=== PATIENT | male | born 1970 | race Caucasian/White ===

== ENCOUNTER 2018-08-16 10:32 | Emergency (ER) | payer BC ==
[2018-08-16 10:32] VITALS: BMI 26.2
[2018-08-16 11:00] VITALS: TEMP 98
--- NOTE | 2018-08-16 11:19 | ED PDOC ---
Arrival/HPI <Uzair Martins - Last Filed: 08/16/18 11:50> - General Historian: Patient - History of Present Illness Narrative History of Present Illness (Text): 08/16/18 11:16 47 y/o male, pmh including renal stone, nkda, c/o acute onset of generalized abdominal pain about 1 hour ago. Pt. stated that the pain is every where, upper and lower, no urinary symptoms, no nausea/vomiting/diarrhea, no rash, no dizziness, no change in vision, no night sweat, no dizziness, no chest pain/shortness of breath, no other medical or psychological complaints. <Shiva Carver - Last Filed: 08/16/18 13:40> - General Chief Complaint: Abdominal Pain Time Seen by Provider: 08/16/18 10:33 Past Medical History - Provider Review Nursing Documentation Reviewed: Yes - Infectious Disease Hx of Infectious Diseases: None - Tetanus Immunization Tetanus Immunization: Unknown - Past Medical History Past Medical History: No Previous - Cardiac Hx Cardiac Disorders: No Other/Comment: kidney stones, hernia repair - Renal Hx Kidney Stones: Yes - Psychiatric Hx Depression: No Hx Emotional Abuse: No Hx Physical Abuse: No Hx Substance Use: No - Surgical History Other/Comment: vasectomy - Anesthesia Hx Anesthesia: Yes Hx Anesthesia Reactions: No Hx Malignant Hyperthermia: No - Suicidal Assessment Feels Threatened In Home Enviroment: No <Shiva Carver - Last Filed: 08/16/18 13:40> Family/Social History - Physician Review Nursing Documentation Reviewed: Yes Family/Social History: Unknown Family HX Smoking Status: Never Smoked Hx Alcohol Use: (Social alcohol) Hx Substance Use: No Hx Substance Use Treatment: No <Shiva Carver - Last Filed: 08/16/18 13:40> Allergies/Home Meds <Uzair Martins - Last Filed: 08/16/18 11:50> <Shiva Carver - Last Filed: 08/16/18 13:40> Allergies/Adverse Reactions: Allergies No Known Allergies Allergy (Verified 12/07/14 14:07) Home Medications: Home Meds Medication Instructions Recorded Confirmed Multivitamin and [id number] [Daily 1 tab PO DAILY 07/01/14 12/07/14 Multi/Max-Vitamins] Lubiprostone [Amitiza] 8 mcg PO DAILY 12/07/14 12/07/14 Review of Systems - Review of Systems Constitutional: absent: Fatigue, Fevers Eyes: absent: Vision Changes ENT: absent: Hearing Changes Respiratory: absent: SOB, Cough Cardiovascular: absent: Chest Pain Gastrointestinal: Abdominal Pain. absent: Diarrhea, Nausea, Vomiting Genitourinary Male: absent: Dysuria, Frequency, Hematuria Musculoskeletal: absent: Arthralgias, Back Pain Skin: absent: Rash, Pruritis Neurological: absent: Headache, Dizziness Psychiatric: absent: Anxiety, Depression, Suicidal Ideation <Shiva Carver - Last Filed: 08/16/18 13:40> Physical Exam Vital Signs Temp Pulse Resp BP Pulse Ox 08/16/18 10:56 98 F 85 16 128/63 99 <Uzair Martins - Last Filed: 08/16/18 11:50> Vital Signs Reviewed: Yes Vital Signs Temp Pulse Resp BP Pulse Ox 08/16/18 10:56 98 F 85 16 128/63 99 Temperature: Afebrile Blood Pressure: Normal Pulse: Regular Respiratory Rate: Normal Appearance: Positive for: Well-Appearing, Non-Toxic Pain Distress: Severe Mental Status: Positive for: Alert and Oriented X 3 - Systems Exam Head: Present: Atraumatic, Normocephalic Pupils: Present: PERRL Extroacular Muscles: Present: EOMI Conjunctiva: Present: Normal Mouth: Present: Moist Mucous Membranes Neck: Present: Normal Range of Motion Respiratory/Chest: Present: Clear to Auscultation, Good Air Exchange. No: Respiratory Distress, Accessory Muscle Use Cardiovascular: Present: Regular Rate and Rhythm, Normal S1, S2. No: Murmurs Abdomen: Present: Tenderness (generalized tenderness on the rt. flank region). No: Distention, Peritoneal Signs, Rebound, Guarding, Hernias Back: Present: Normal Inspection, CVA Tenderness (rt.) Upper Extremity: Present: Normal Inspection. No: Cyanosis, Edema Lower Extremity: Present: Normal Inspection. No: Edema Neurological: Present: GCS=15, CN II-XII Intact, Speech Normal Skin: Present: Warm, Dry, Normal Color. No: Rashes Psychiatric: Present: Alert, Oriented x 3, Normal Insight, Normal Concentration <Shiva Carver - Last Filed: 08/16/18 13:40> Medical Decision Making - RAD Interpretation Radiology Orders: 08/16/18 11:24 ABDOMEN & PELVIS [ABD & PELVIS W/O PO OR IV CONT] [CT] Stat - Medication Orders Current Medication Orders: Sodium Chloride (Sodium Chloride 0.9%) 1,000 mls @ 999 mls/hr IV .Q1H1M STA Stop: 08/16/18 12:20 Last Admin: 08/16/18 11:30 Dose: 999 mls/hr eMAR Start Stop Document 08/16/18 11:30 HI (Rec: 08/16/18 11:[id number]) Intravenous Solution Start Date 08/16/18 Start Time 11:30 Discontinued Medications Famotidine (Pepcid) 20 mg IVP STAT STA Stop: 08/16/18 11:21 Last Admin: 08/16/18 11:30 Dose: 20 mg IVP Administration Document 08/16/18 11:30 HI (Rec: 08/16/18 11:[email or web address]) Charges for Administration # of IVP Administrations 1 Ketorolac Tromethamine (Toradol) 30 mg IVP STAT STA Stop: 08/16/18 11:21 Last Admin: 08/16/18 11:30 Dose: 30 mg MAR Pain Assessment Document 08/16/18 11:30 HI (Rec: 08/16/18 11:[id number] Pain Reassessment Is this a pain reassessment? No Sleep Is patient sleeping during reassessment? No Presence of Pain Presence of Pain Yes Pain Scale Used Protocol: PSCALES Pain Scale Used Numeric Location Upper or Lower Lower Pain Location Body Site Abdomen Description Description Sharp Intensity of Pain at present 8 IVP Administration Document 08/16/18 11:30 HI (Rec: 08/16/18 11:[email or web address]) Charges for Administration # of IVP Administrations 1 <Uzair Martins - Last Filed: 08/16/18 11:50> ED Course and Treatment: 08/16/18 11:23 -labs/ua -CT abdomen and pelvis w/o contrast -IVF/toradol/pepcid -case discussed and examined with Dr. Martins, agreed on the order. -Observe and reassess 08/16/18 13:02 -Labs are non-significant except bun 30 (dehydrated, IVF ordered) -UA show no UTI and no hematuria -CT abdomen and pelvis show 2 mm stone in the right distal ureter at the UVJ with mild hydronephrosis. Bilateral nephrolithiasis -Pt. request more pain med, flomax/strainer/percocet ordered. I checked the [facility] report, there is no visible findings under this name and date of . 08/16/18 13:38 -All labs and radiology result discussed with the patient. -Pt. is feeling much better, tolerating po, request to be discharged home. -Discharge home with motrin, percocet, flomax, strainer, stay hydrated, bed rest, follow up with your own pmd and urologist within 2 days, return to the ER for any new or worsening signs or symptoms. - Lab Interpretations I have reviewed the lab results: Yes - RAD Interpretation Radiology Orders: Date of service: 08/16/2018 PROCEDURE: CT Abdomen and Pelvis without intravenous contrast HISTORY: acute abdominal pain, rt. renal stone, r/o ureterl COMPARISON: 12/07/2014 TECHNIQUE: Without contrast.. Contrast dose: Radiation dose: Total exam DLP = 549 mGy-cm. This CT exam was performed using one or more of the following dose reduction techniques: Automated exposure control, adjustment of the mA and/or kV according to patient size, and/or use of iterative reconstruction technique. FINDINGS: LOWER THORAX: Unremarkable. LIVER: Unremarkable. No gross lesion or ductal dilatation. GALLBLADDER AND BILE DUCTS: Unremarkable. PANCREAS: Unremarkable. No gross lesion or ductal dilatation. SPLEEN: Unremarkable. ADRENALS: Unremarkable. No mass. KIDNEYS AND URETERS: Multiple small bilateral renal stones. There is a 2 mm stone in the right distal ureter at the UVJ. There is mild right-sided hydronephrosis. This is seen on axial image 160 series 3. VASCULATURE: Unremarkable. No aortic aneurysm. BOWEL: Unremarkable. No obstruction. No gross mural thickening. APPENDIX: Unremarkable. Normal appendix. PERITONEUM: Unremarkable. No free fluid. No free air. LYMPH NODES: Unremarkable. No enlarged lymph nodes. BLADDER: Unremarkable. REPRODUCTIVE: Unremarkable. BONES: Disk degeneration at L5-S1 OTHER FINDINGS: None. IMPRESSION: 2 mm stone in the right distal ureter at the UVJ with mild hydronephrosis. Bilateral nephrolithiasis Annealing Oven Operator: Radiologist <Shiva Carver Q - Last Filed: 08/16/18 13:40> - PA / TACTICAL RESPONSE GROUP OFFICER / Resident Statement MD/DO has examined the patient and agrees with the treatment plan. <Uzair Martins - Last Filed: 08/16/18 11:50> - PA / TACTICAL RESPONSE GROUP OFFICER / Resident Statement LONDON has reviewed & agrees with the documentation as recorded. LONDON has examined the patient and agrees with the treatment plan. <Shiva Carver - Last Filed: 08/16/18 13:40> Disposition/Present on Arrival <Uzair Martins - Last Filed: 08/16/18 11:50> - Present on Arrival Any Indicators Present on Arrival: No History of DVT/PE: No History of Uncontrolled Diabetes: No Urinary Catheter: No History of Decub. Ulcer: No History Surgical Site Infection Following: None - Disposition Have Diagnosis and Disposition been Completed?: Yes Disposition Time: 13:03 Patient Plan: Discharge <Shiva Carver - Last Filed: 08/16/18 13:40> - Disposition Diagnosis: Ureter colic Disposition: HOME/ ROUTINE Patient Problems: Current Active Problems Problem Status Onset Ureter colic Acute Condition: IMPROVED Additional Instructions: -Discharge home with motrin, percocet, flomax, strainer, stay hydrated, bed rest, follow up with your own pmd and urologist within 2 days, return to the ER for any new or worsening signs or symptoms. Prescriptions: Ibuprofen [Motrin] 600 mg PO QID PRN #30 tab PRN Reason: Other oxyCODONE/Acetaminophen [Percocet 5/325 mg Tab] 1 tab PO QID PRN #12 tab PRN Reason: Other Tamsulosin HCl [Flomax] 0.4 mg PO DAILY #7 cap.er.24h Referrals: Jimenez Ramos MD [Staff Provider] - Follow up with primary [facility] [place] - Follow up with primary Forms: O[employer]in (Mauritian), WORK NOTE
[2018-08-16] MEDS ORDERED: Sodium Chloride 0.9% 1,000 ML IV STA (11:20)
[2018-08-16 12:00] LABS: BASO # 0.02 K/mm3 (0.0-2.0); BASO % 0.3 % (0.0-3.0); EOS # 0.1 (0.0-0.7); EOS % 1.8 % (1.5-5.0); GRAN # 5.35 (1.4-6.5); GRAN % 69.4 % (50.0-68.0); HEMOGLOBIN 12.5 g/dL (14.0-18.0); LYMPH # 1.8 (1.2-3.4); LYMPH % 22.9 % (22.0-35.0); MEAN CELL VOLUME 89.4 fl (80.0-105.0); MEAN CORPUSCULAR HGB CONC 33.5 g/dl (31.0-37.0); MEAN PLATELET VOLUME 10.3 fl (7.0-11.0); MONO # 0.4 (0.1-0.6); MONO % 5.6 % (1.0-6.0); RBC 4.17 10^6/uL (3.5-6.1); RED CELL DISTRIBUTION WIDTH 13.1 % (11.5-14.5); WHITE BLOOD COUNT 7.7 10^3/ul (4.5-11.0)
[2018-08-16 12:09] LABS: ALB/GLOB RATIO 1.5 (1.1-1.8); ALT/SGPT 24 U/L (7-56); AST/SGOT 25 U/L (17-59); BLOOD UREA NITROGEN 30 mg/dL (7-21); CALCIUM 9.3 mg/dL (8.4-10.5); GFR NON-AFRICAN AMERICAN > 60
[2018-08-16 12:18] LABS: URINE BILIRUBIN NEGATIVE (NEGATIVE); URINE BLOOD NEGATIVE (NEGATIVE); URINE GLUCOSE (UA) NEGATIVE (NEGATIVE); URINE LEUKOCYTE ESTERASE NEGATIVE Leu/uL (NEGATIVE); URINE PROTEIN TRACE mg/dL (<30 mg/dL); URINE UROBILINOGEN 0.2 E.U./dL (<1 E.U./dL)
[2018-08-16 12:20] LABS: URINE APPEARANCE CLEAR (CLEAR); URINE COLOR YELLOW (YELLOW)
[2018-08-16 12:24] LABS: BARBITURATES, UR NEGATIVE (NEGATIVE); BENZODIAZEPINES, UR NEGATIVE (NEGATIVE); OPIATES, UR NEGATIVE (NEGATIVE); PHENCYCLIDINE, UR NEGATIVE (NEGATIVE)
[2018-08-16 12:27] LABS: URINE BACTERIA FEW (NEG); URINE RBC NEGATIVE /hpf (0-2)
--- NOTE | 2018-08-16 12:52 | CT ---
Date of service: 08/16/2018 PROCEDURE: CT Abdomen and Pelvis without intravenous contrast HISTORY: acute abdominal pain, rt. renal stone, r/o ureterl COMPARISON: 12/07/2014 TECHNIQUE: Without contrast.. Contrast dose: Radiation dose: Total exam DLP = 549 mGy-cm. This CT exam was performed using one or more of the following dose reduction techniques: Automated exposure control, adjustment of the mA and/or kV according to patient size, and/or use of iterative reconstruction technique. FINDINGS: LOWER THORAX: Unremarkable. LIVER: Unremarkable. No gross lesion or ductal dilatation. GALLBLADDER AND BILE DUCTS: Unremarkable. PANCREAS: Unremarkable. No gross lesion or ductal dilatation. SPLEEN: Unremarkable. ADRENALS: Unremarkable. No mass. KIDNEYS AND URETERS: Multiple small bilateral renal stones. There is a 2 mm stone in the right distal ureter at the UVJ. There is mild right-sided hydronephrosis. This is seen on axial image 160 series 3. VASCULATURE: Unremarkable. No aortic aneurysm. BOWEL: Unremarkable. No obstruction. No gross mural thickening. APPENDIX: Unremarkable. Normal appendix. PERITONEUM: Unremarkable. No free fluid. No free air. LYMPH NODES: Unremarkable. No enlarged lymph nodes. BLADDER: Unremarkable. REPRODUCTIVE: Unremarkable. BONES: Disk degeneration at L5-S1 OTHER FINDINGS: None. IMPRESSION: 2 mm stone in the right distal ureter at the UVJ with mild hydronephrosis. Bilateral nephrolithiasis
[2018-08-16] MEDS ORDERED: Oxycodone/Acetaminophen 5/325 mg Tab PO STA (13:01)
[2018-08-16 13:15] VITALS: RESP 18
[2018-08-16] MEDS ORDERED: Sodium Chloride 0.9% 500 ML IV STA (13:40)
[2018-08-16 13:49] VITALS: BP 113/72; PULSE 63; O2SAT 98
== END 2018-08-16 14:25 | disposition home or self-care (01) ==
LOC: ED 10:32
DX: N20.1 Calculus of ureter (principal)
CPT/HCPCS: 74176; 80053; 81001; 83735; 85025; 96374; 96375; 99284; G0480; J1885; J7030; J7040

== ENCOUNTER 2018-12-10 10:26 | Outpatient (CLI) | payer BC | END 2018-12-10 10:27 | disposition home or self-care (01) | LOC: RAD 10:26 ==